=== PATIENT | male | born 1990 | race African-American/Black ===

== ENCOUNTER 2019-08-09 09:42 | Emergency (ER) | payer MEDICAID, OTHER ==
[~2019-08-09] VITALS: Ht 180.3 cm; Wt 97.5 kg
[2019-08-09 10:16] VITALS: BP 113/72
== END 2019-08-09 11:01 | disposition home or self-care (01) ==
LOC: ER 09:42
DX: J40 Bronchitis, not specified as acute or chronic (principal)
CPT/HCPCS: 71046

== ENCOUNTER → 2019-08-22 | Emergency (ER) | payer MEDICAID ==
[~2019-08-22] VITALS: Ht 177.8 cm; Wt 90.7 kg
[2019-08-22 17:27] VITALS: BP 133/80
== END | disposition home or self-care (01) ==
LOC: ER 17:20
DX: J02.0 Streptococcal pharyngitis (principal); R05 Cough; R09.81 Nasal congestion; R50.9 Fever, unspecified
CPT/HCPCS: 71045; 87070; 87804; 87880